=== PATIENT | male | born 2000 | race Caucasian/White ===

== ENCOUNTER 2023-02-28 12:00 | Emergency (ER) | payer MEDICAID, OTHER ==
[~2023-02-28] VITALS: Ht 188 cm; Wt 158.8 kg
[2023-02-28 12:13] VITALS: BP 132/96; PULSE 80; RESP 17; TEMP 98.7; O2SAT 95
[2023-02-28] MEDS ORDERED: BENZ200C4 PO (13:29)
[2023-02-28] MEDS ORDERED: OMEP20EC11 PO (13:29)
[2023-02-28 13:37] VITALS: BP 132/96; PULSE 80; RESP 17; TEMP 98.7; O2SAT 95
== END 2023-02-28 13:37 | disposition home or self-care (01) ==
LOC: MED 12:00
DX: R07.89 Other chest pain (principal); K21.9 Gastro-esophageal reflux disease without esophagitis; Z79.899 Other long term (current) drug therapy
CPT/HCPCS: 71045; 93005; 99283